=== PATIENT | female | born 2000 | race Caucasian/White ===

== ENCOUNTER 2022-08-22 15:39 | Outpatient (REF) | payer MEDICAID, SELFPAY ==
--- NOTE | 2022-08-22 13:30 | PAPFT_PTH ---
PATIENT: Olga Watkins LOC: [facility]#:[id number] AGE/SX: 21/F ROOM: RE08/22/[address]: Alexandra Cameron : 2000 BED: DIS: 08/22/2022 SPEC #: [id number] RECD: 08/23/22 12:52 STATUS: SARAH BRANDY #: [id number] MCKAY: 08/22/22 13:[address]: Alexandra Sanchez DEPT: [facility] Cytology RECD BY: Carol Duffy ENTERED: 08/23/22 12:52 SP TYPE: PAPFT OTHR DR: Agustin Guallpa Tissues: 1 - CX/ENDOCX FOR PAP SMEARS Procedures: PAP THIN PREP/[facility] Screening Comments: [id number] (CHLAMYDIA/GC)
[2022-08-22 21:46] LABS: HCT 41.8 % (36.0-46.0); HGB 13.6 g/dL (11.2-15.7); MCH 28.3 pg (27.0-33.0); MCHC 32.5 % (32.0-36.0); MCV 87 fL (80-95); MPV 9.5 fL (8.0-11.0); Platelet Count 425 10^3/uL (130-400); RBC 4.81 10^6/uL (3.93-5.22); RDW 12.6 % (11.7-14.6); RDW-SD 40.4 fL; WBC 8.73 10^3/uL (4.4-10.8)
[2022-08-22 22:23] LABS: ALT 25 U/L (14-59); AST 29 U/L (15-37); Albumin 3.7 g/dL (3.4-5.0); Alkaline Phosphatase 99 U/L (46-116); Anion Gap 8.4 mmol/L (3-11); BUN 13 mg/dL (7-18); Bilirubin, Total 0.2 mg/dL (0.2-1.0); CO2 28.6 mmol/L (21.0-32.0); CREATININE 0.9 mg/dL (0.55-1.02); Calcium 10.2 mg/dL (8.5-10.1); Calculated LDL 155 mg/dL (<100); Chloride 102 mmol/L (98-107); Cholesterol 237 mg/dL (<200); Estimated GFR 92.12 (mL/min/1.73m2); Glucose 111 mg/dL (74-106); HDL Cholesterol 55 mg/dL (40-60); Potassium 4.4 mmol/L (3.5-5.1); Sodium 139 mmol/L (136-145); Total Protein 8.4 g/dL (6.4-8.2); Triglyceride 138 mg/dL (<150)
[2022-08-24 13:43] LABS: Chlamydia Result Negative (Negative); GC Result Negative (Negative)
== END 2022-08-22 15:40 | disposition home or self-care (01) ==
LOC: NCHCN 15:39
PROVIDERS: Visit Provider Nurse Practitioner Family
DX: F41.8 Other specified anxiety disorders (principal); G43.909 Migraine, unspecified, not intractable, without status migrainosus; R63.5 Abnormal weight gain; Z11.3 Encounter for screening for infections with a predominantly sexual mode of transmission; R73.09 Other abnormal glucose; E78.5 Hyperlipidemia, unspecified; Z12.4 Encounter for screening for malignant neoplasm of cervix
CPT/HCPCS: 80053; 80061; 85027; 87491; 87591; 88142; 83036